=== PATIENT | male | born 1980 | race Caucasian/White ===

== ENCOUNTER → 2020-05-19 15:07 | Outpatient (CLI) | payer BC, SELFPAY ==
[2020-05-23 10:01] LABS: Chloride 109 mmol/L (98-107); Potassium 4.4 mmoL/L (3.5-5.1); Sodium 141 mmol/L (136-145)
[2020-05-23 10:03] LABS: Blood Urea Nitrogen 14 mg/dl (9-20); Estimated Glomerular Filt Rate 74 ml/min (>60); GFR (African American) 89 ML/MIN (>60)
[2020-05-23 10:04] LABS: Alanine Aminotransferase 14 U/L (12-78); Albumin Level 4.9 g/dl (3.5-5.0); Albumin/Globulin Ratio 1.5 (1.1-1.8); Alkaline Phosphatase 88 U/L (38-126); Aspartate Amino Transferase 27 U/L (17-59); Bilirubin,Total 0.5 mg/dl (0.2-1.3); Calcium 9.9 mg/dl (8.4-10.2); Carbon Dioxide 23 mmol/L (22.0-30.0); Cholesterol 320 mg/dl (140-200); Globulin 3.2 g/dL (1.3-3.2); Glucose 90 mg/dl (74-100); Total Protein,Serum 8.1 g/dl (6.3-8.2); Triglycerides 372 mg/dl (30-150); VLDL Cholesterol 74 mg/dL (0-40)
[2020-05-23 10:05] LABS: Chol/HDL Ratio 8.4 (1-3.5); HDL Cholesterol 38 mg/dl (40-60)
[2020-05-23 10:16] LABS: Direct LDL Cholesterol 63.12 mg/dL (100-129)
[2020-05-23 10:21] LABS: T4 (Thyroxine) 8.8 ug/dl (5.53-11.0)
[2020-05-23 10:35] LABS: Thyroid Stimulating Hormone 1.03 uIU/mL (0.465-4.68)
== END ==
PROVIDERS: Visit Provider Nurse Practitioner Family
DX: M54.2 Cervicalgia (principal); R07.9 Chest pain, unspecified; Z79.899 Other long term (current) drug therapy
CPT/HCPCS: 80053; 80061; 84436; 84443

== ENCOUNTER → 2020-06-02 13:26 | Outpatient (CLI) | payer BC, SELFPAY ==
--- NOTE | 2020-06-02 13:28 | CA_ITS ---
APPROVED REPORT EXAM: Comprehensive 2D, Doppler, and color-flow Echocardiogram Forensic Medical Examiner: Chelsey Maurer CRT Ht: 5 ft 8 in Wt: 157lbs BSA: 1.84 BP: 110/84 mmHg Indications: Shortness of Breath, palpitations 2D Dimensions LVOT 1.94 cm (M/F) 1.5-2.5 M-Mode Dimensions RVDd 2.82 cm (0.9-2.6) LA Diam 2.68 cm (1.9-4.0) LVDd 3.79 cm (3.5-5.7) Ao Diam 3.84 cm (2.0-3.7) LVDs 2.54 cm (3.5-5.7) IVSd 1.38 cm (0.6-1.1) PWd 0.88 cm (0.6-1.1) EF (Teich) 62.30% FS 33.00% EDV (Teich) 61.60 mL ESV (Teich) 23.20 mL LV Diastology E Decel Time 173.00 (160-240 msec) E/A Ratio 0.97 MED E' 8.20 (< 7 cm/sec) E'/MED E' Ratio 7.18 (>14) LAT E' 12.40 (<10 cm/sec) E/LAT E' Ratio 4.75 (>14) Aortic Valve AO Peak GR. 3.60 mmHg Mitral Valve MV A Velocity 60.00 (40-130 cm/s) E/A Ratio 0.97 MV Decel. Time 173.00 (160-240 ms) Tricuspid Valve TR P. Velocity 247.00 cm/s RAP Estimate 10.00 mmHg RVSP 34.50 mmHg Left Ventricle Left atrium is normal size, left ventricle is normal size, there is preserved left ventricular systolic function, visually estimated ejection fraction 55% with no regional wall motion abnormality, diastolic parameters are normal. Right Ventricle Right atrium and right ventricle are relatively normal size and function. Aortic Valve Aortic valve is grossly normal, there is no aortic stenosis or aortic insufficiency. Mitral Valve Mitral valve is grossly normal, there is trace mitral regurgitation. Tricuspid Valve Tricuspid valve is grossly normal, there is trace tricuspid regurgitation. Pulmonic Valve Pulmonic valve is poorly visualized. Great Vessels Aortic root is normal size. Pericardium No significant pericardial effusion noted. Conclusion 1. Normal left ventricular size, preserved left ventricular systolic function, visually estimated ejection fraction 55% with no regional wall motion abnormality, diastolic parameters are within normal range. 2. Trace mitral and tricuspid regurgitation. 3. No significant pericardial effusion noted. Electronically signed by : Aram Caruso, 06/06/2020 05:45:54
== END ==
PROVIDERS: PCP Nurse Practitioner Family; Visit Provider Nurse Practitioner Family
DX: R06.02 Shortness of breath (principal); R07.9 Chest pain, unspecified
CPT/HCPCS: 93306

== ENCOUNTER → 2020-06-30 09:39 | Outpatient (CLI) | payer BC, SELFPAY ==
--- NOTE | 2020-06-30 09:40 | CA_ITS ---
APPROVED REPORT Exam: Exercise Treadmill Technologist: Danni Dillon, Ht: 5 ft 9 in Wt: 170 lbs BSA: 1.93 m2 HR: 82 bpm BP: 118/81 mmHg Rhythm: NSR Indications: Chest pain Stress Test Details Test: Haroldo HR Resting HR: 85 bpm Max Heart Rate (APMHR): 179 bpm Max HR Achieved: 169 bpm Target HR (85% APMHR): 152 bpm % of APMHR: 94 Recovery HR: 100 bpm BP Resting BP: 118/81 mmHg Max BP: 180/80 mmHg Recovery BP: 136.0/90.0 mmHg ECG Clinical Reason for Termination: Dyspnea Exercise duration: 11:17 min Highest Stage Achieved: Exercise capacity: 12.8 METs Stress ECG Conclusion Max HR - 169; %of PM - 111; Max B/P- 180/80 ; METS - 12.8; Test stopped due to SOA. No chest pain. No arrhythmias. Less than 1.5mm upsloping ST segment Depression - Normal. Negative stress test. Good exercise capacity. Test Summary REST . . . . . . . Resting REST 05:31 0.0 1.2 85 . 118/ 81 . . Stage 1 01:00 10.0 1.7 98 . . . . Stage 1 02:00 10.0 1.7 105 . . . . Stage 1 03:00 10.0 1.7 99 . 140/ 80 . . Stage 2 01:00 12.0 2.5 116 . . . . Stage 2 02:00 12.0 2.5 123 . . . . Stage 2 03:00 12.0 2.5 123 . 140/ 80 . . Stage 3 01:00 14.0 3.4 132 . . . . Stage 3 02:00 14.0 3.4 133 . . . . Stage 3 03:00 14.0 3.4 136 . 160/ 80 . . Stage 4 01:00 16.0 4.2 160 . . . . Stage 4 02:00 16.0 4.2 168 . . . . Stage 4 02:17 16.0 4.2 169 . . . Stop exercise at 11:17 RECOVERY 01:00 0.0 0.0 139 . 180/ 80 . . RECOVERY 02:00 0.0 0.0 114 . 180/ 80 . . RECOVERY 03:00 0.0 0.0 102 . 168/ 92 . . RECOVERY 04:00 0.0 0.0 95 . 168/ 92 . . RECOVERY 05:00 0.0 0.0 99 . 136/ 99 . . RECOVERY 06:00 0.0 0.0 99 . 136/ 99 . . RECOVERY 06:07 0.0 0.0 102 . 136/ 99 . . Electronically signed by : Aram Caruso, 06/30/2020 13:07:59
== END ==
PROVIDERS: PCP Nurse Practitioner Family; Visit Provider Urology
DX: R07.9 Chest pain, unspecified (principal)
CPT/HCPCS: 93017